=== PATIENT | male | born 1935 | race Caucasian/White ===

== ENCOUNTER → 2019-12-06 10:00 | Outpatient (BNVA) | payer MEDICARE, OTHER, SELFPAY | PROVIDERS: Family Provider Family Medicine; PCP Family Medicine; Visit Provider Family Medicine | DX: N40.0 Benign prostatic hyperplasia without lower urinary tract symptoms (principal) | CPT/HCPCS: 84153 ==

== ENCOUNTER → 2020-05-29 09:02 | Outpatient (BNVA) | payer MEDICARE, OTHER, SELFPAY | PROVIDERS: Family Provider Family Medicine; PCP Family Medicine; Visit Provider Family Medicine | DX: N40.0 Benign prostatic hyperplasia without lower urinary tract symptoms (principal) | CPT/HCPCS: 36415; 84153 ==

== ENCOUNTER 2020-10-03 09:59 | Emergency (ER) | payer MEDICARE, OTHER, SELFPAY ==
[2020-10-03 10:03] VITALS: BP 153/91; PULSE 69; RESP 18; TEMP 36.6; O2SAT 96; BMI 25.0
[2020-10-03 10:08] VITALS: BP 141/85; PULSE 63; O2SAT 96
--- NOTE | 2020-10-03 10:24 | XR_ITS ---
WS: [id number] Left rib detail, 2 views, 10/03/2020 Clinical Data: fall; lateral rib pain Comparison: None. Findings: The ribs are intact. No rib fractures seen. No subcutaneous emphysema is present. No pneumothorax is noted. No left pleural effusion is seen. XR/XR ribs LT mn 3V w CXR1V [id number] Impression: Negative chest with left rib detail.
--- NOTE | 2020-10-03 10:24 | XR_ITS ---
WS: [id number] Acute abdomen series, 10/03/2020 Clinical Data: constipation Comparison: None. Findings: In the chest there are no nodules, masses or effusions. The heart is normal. The pulmonary vascularity is not increased. The aortic arch and descending aorta show tortuosity. There is mild ate lectasis over the surface of the left diaphragm. No free air is seen beneath the diaphragms. No abnormal intra-abdominal masses or calcifications are seen. There is air in the small bowel and colon but no evidence of obstruction. There is a large amou nt of fecal material throughout the colon. There are scattered air-fluid levels. XR/XR acute abdomen series 64042 Impression: 1. Atherosclerosis. 2. Moderate generalized ileus. 3. Large amount of fecal material in the colon.
[2020-10-03 10:25] VITALS: BP 141/85; PULSE 66; RESP 18; O2SAT 98
--- NOTE | 2020-10-03 10:43 | W.ED.GENADLT ---
HPI - General Adult General: Chief complaint: General Medical Stated complaint: RIB PAIN, CONSTIPATION Time Seen by Provider: 10/03/20 10:11 Source: patient Mode of arrival: ambulatory Limitations: no limitations History of Present Illness: HPI narrative: Patient is a nice 85-year-old male who presents to ED today with a complaint of left rib pain and constipation. Patient tells me yesterday he accidentally tripped and fell and landed onto his left side. He states he was having left rib pain and therefore took some leftover pain medication that he had from a previous injury. He thinks the usage of the pain medications has now caused him to become constipated. States he normally has a bowel movement every 1 to 2 days but states it has been 5 days now without a bowel movement. He has tried Metamucil, MiraLAX, and an [id number] enema without relief. He does not complain of abdominal pain but does feel bloated. He is passing gas. Denies shortness of breath or difficulty breathing. Onset (ago): day(s) Location: chest and abdomen Pain Consistency: intermittent Relieving factors: none Exacerbating factors: movement Associated symptoms: Deny dyspnea, nausea, palpitations, syncope or vomiting Treatments prior to arrival: other (pain medication, miralax, metamucil, enema) Review of Systems Const: Denies: fever(s) Eyes: Denies: change in vision Card: Reports: chest pain (L lateral rib pain); Denies: palpitations, irregular heart rhythm, edema, swelling of feet/ankles, lightheadedness, syncope, pre-syncope, dyspnea on exertion or orthopnea Resp: Denies: dyspnea or chest congestion GI: Reports: constipation and bloating; Denies: nausea, vomiting, diarrhea or rectal swelling Musc: Denies: back pain PFS ED PFSH: Social History Smoking and tobacco status: former smoker Alcohol intake: current Alcohol intake frequency: few times a week Physical Exam Const: COMMON NORMALS: no acute distress, patient oriented x3, no limitations and alert GENERAL APPEARANCE: cooperative ORIENTATION/CONSCIOUSNESS: Yes awake, Yes oriented to person, Yes oriented to place and Yes oriented to time HENMT: COMMON NORMALS: normocephalic and atraumatic HEAD & SCALP: normocephalic and atraumatic Neck/C-Spine: COMMON NORMALS: full ROM CERVICAL SPINE: No Cervical spine tenderness Chest: CHEST: Yes localized rib tenderness with anteroposterior compression OTHER: abrasion and mild ecchymosis to L lateral chest wall; TTP directly over this area Resp: COMMON NORMALS: normal respiratory effort and clear to auscultation bilaterally AUSCULTATION: clear to auscultation bilaterally Cardio: COMMON NORMALS: regular rate and regular rhythm RATE: regular rate RHYTHM: regular rhythm GI: COMMON NORMALS: Normal to inspection, nondistended, normoactive bowel sounds present, Soft to palpation, non-tender, No hepatosplenomegaly present and no masses INSPECTION: Yes normal to inspection AUSCULTATION: Yes normoactive bowel sounds PALPATION: Yes Soft to palpation and Yes No hepatosplenomegaly present : COMMON NORMALS: Yes no CVA tenderness BLADDER/KIDNEY EXAM: Yes no CVA tenderness Back/Pelvis: COMMON NORMALS: no CVA tenderness, thoracic and lumbar spine normal to inspection, no thoracic nor lumbar tenderness, thoraco-lumbar ROM normal and straight leg raise negative bilaterally Extremity: GENERAL: Yes normal exam except as noted Neuro: COMMON NORMALS: patient oriented x3 SENSORIUM/ORIENTATION: Yes alert, Yes oriented to person, Yes oriented to place and Yes oriented to time Skin: COMMON NORMALS: no rashes or lesions noted GENERAL SKIN EXAM: no rashes or lesions noted Course Vital Signs: Vital signs: Vital Signs Temperature 97.9 F 10/03/20 10:03 Pulse Rate 65 10/03/20 13:06 Respiratory Rate 18 10/03/20 10:25 Blood Pressure 141/78 10/03/20 13:06 Pulse Oximetry 96 10/03/20 13:06 MDM - General Adult MDM Narrative: Medical decision making narrative: XR does not show any rib fractures. He does have severe colonic constipation. He was given a milk of molasses enema here and did end up having a moderate bowel movement. We will give him a mixture of milk of magnesia, lactulose, mineral oil to go home with. Recommend MiraLAX twice daily x5 days. Return to ED precautions given. Imaging Data^: XR abdomen: Radiologist's impression: [address] [address] XRay Report Signed Patient: Elie Geller Unit #: [id number] : 1935 Age/Sex: 85 / M ADM Date: 10/03/20 Loc: ER Room/Bed: Attending Dr: Ordering Provider/Ordering MD: Rosa Capellan Date of Service: 10/03/20 Procedure(s): XR acute abdomen series 06305 Accession Number(s): [id number] Report Number: [id number] WS: [id number] Acute abdomen series, 10/03/2020 Clinical Data: constipation Comparison: None. Findings: In the chest there are no nodules, masses or effusions. The heart is normal. The pulmonary vascularity is not increased. The aortic arch and descending aorta show tortuosity. There is mild atelectasis over the surface of the left diaphragm. No free air is seen beneath the diaphragms. No abnormal intra-abdominal masses or calcifications are seen. There is air in the small bowel and colon but no evidence of obstruction. There is a large amount of fecal material throughout the colon. There are scattered air-fluid levels. XR/XR acute abdomen series 71754 Impression: 1. Atherosclerosis. 2. Moderate generalized ileus. 3. Large amount of fecal material in the colon. Dictated By: Katelynn Mcdonald MD Signed By: Katelynn Mcdonald MD Signed Date/Time: 10/03/20 1114 DD/ 1113 XR ribs/CXR: Radiologist's impression: [address] [address] XRay Report Signed Patient: Elie Geller Unit #: [id number] : 1935 Age/Sex: 85 / M ADM Date: 10/03/20 Loc: ER Room/Bed: Attending Dr: Ordering Provider/Ordering MD: Rosa Capellan Date of Service: 10/03/20 Procedure(s): XR ribs LT mn 3V w CXR1V 87487 Accession Number(s): [id number] Report Number: [id number] WS: [id number] Left rib detail, 2 views, 10/03/2020 Clinical Data: fall; lateral rib pain Comparison: None. Findings: The ribs are intact. No rib fractures seen. No subcutaneous emphysema is present. No pneumothorax is noted. No left pleural effusion is seen. XR/XR ribs LT mn 3V w CXR1V [id number] Impression: Negative chest with left rib detail. Dictated By: Katelynn Mcdonald MD Signed By: Katelynn Mcdonald MD Signed Date/Time: 10/03/20 111 DD/ 1114 Discharge Plan Discharge Patient Disposition: Home Clinical Impression: Constipation Qualifiers: Constipation type: unspecified constipation type Qualified Code(s): K59.00 - Constipation, unspecified Contusion of rib on left side Qualifiers: Encounter type: initial encounter Qualified Code(s): S20.212A - Contusion of left front wall of thorax, initial encounter Condition: Stable Prescriptions: No Action amoxicillin 500 mg capsule 500 mg PO TID Qty: 21 RF: 0 pravastatin 20 mg tablet 20 mg PO DAILY RF: 0 potassium gluconate 595 mg (99 mg) tablet 595 mg PO DAILY RF: 0 omega-3 acid ethyl esters 1 gram capsule 1 cap PO DAILY RF: 0 niacin 500 mg tablet 500 mg PO DAILY RF: 0 propranolol 40 mg tablet 40 mg PO DAILY RF: 0 hydrochlorothiazide 25 mg tablet 25 mg PO DAILY RF: 0 omeprazole 20 mg capsule,delayed release(DR/EC) 40 mg PO DAILY RF: 0 Discharge Orders: Discharge ED (Routine); Ordered 10/03/20 Ordered By: Rosa Capellan Referrals: Main Blanco DO [Primary Care Provider] - Patient Instructions: Constipation (ED) Activity Restrictions/Additional Instructions: Take/drink the solution provided to you today when you get home. Begin taking MiraLAX twice daily over the next 5 days. You may return to the emergency department for abdominal pain, inability to pass gas, continued constipation, fevers, or any other concerns you may have. Coding Level of Care Code ED Director Of Investigations for [facility] Fwd Exam Comprehensive
[2020-10-03 13:06] VITALS: BP 141/78; PULSE 65; O2SAT 96
== END 2020-10-03 13:08 | disposition home or self-care (01) ==
PROVIDERS: Emergency Provider Physician Assistant; PCP Family Medicine
DX: S20.212A Contusion of left front wall of thorax, initial encounter (principal); K59.00 Constipation, unspecified; Z87.891 Personal history of nicotine dependence; W01.0XXA Fall on same level from slipping, tripping and stumbling without subsequent striking against object, initial encounter
CPT/HCPCS: 45915; 71101; 74022; 99283

== ENCOUNTER → 2020-11-29 09:09 | Outpatient (BNVA) | payer MEDICARE, OTHER, SELFPAY | PROVIDERS: PCP Family Medicine; Visit Provider Family Medicine | DX: N40.0 Benign prostatic hyperplasia without lower urinary tract symptoms (principal) | CPT/HCPCS: 84153 ==

== ENCOUNTER → 2022-04-03 10:00 | Outpatient (BNVA) | payer MEDICARE, OTHER, SELFPAY | PROVIDERS: PCP Family Medicine; Visit Provider Nurse Practitioner Family | DX: N40.0 Benign prostatic hyperplasia without lower urinary tract symptoms (principal) | CPT/HCPCS: 84153 ==

== ENCOUNTER → 2023-04-07 09:42 | Outpatient (BNVA) | payer MEDICARE, OTHER, SELFPAY | PROVIDERS: PCP Family Medicine; Visit Provider Nurse Practitioner Family | DX: N40.0 Benign prostatic hyperplasia without lower urinary tract symptoms; I10 Essential (primary) hypertension | CPT/HCPCS: 80053; 80061; 84153; 84443; 85025 ==

== ENCOUNTER → 2023-07-21 17:49 | Outpatient (BNVA) | payer MEDICARE, OTHER, SELFPAY | PROVIDERS: PCP Family Medicine; Visit Provider Nurse Practitioner Family | DX: N40.0 Benign prostatic hyperplasia without lower urinary tract symptoms (principal); R97.20 Elevated prostate specific antigen [PSA] | CPT/HCPCS: 84153 ==

== ENCOUNTER → 2023-09-15 08:45 | Outpatient (BNVA) | payer MEDICARE, OTHER, SELFPAY | PROVIDERS: PCP Family Medicine; Visit Provider Nurse Practitioner Family | DX: R97.20 Elevated prostate specific antigen [PSA] (principal) | CPT/HCPCS: 84153 ==

== ENCOUNTER → 2024-04-01 09:00 | Outpatient (BNVA) | payer MEDICARE, OTHER, SELFPAY | PROVIDERS: PCP Nurse Practitioner Family; Visit Provider Nurse Practitioner Family | DX: N40.0 Benign prostatic hyperplasia without lower urinary tract symptoms (principal) | CPT/HCPCS: 84153 ==